=== PATIENT | female | born 1945 | race Caucasian/White ===

== ENCOUNTER 2016-12-13 11:08 | Day surgery (SDC) | payer MEDICARE, BC ==
[~2016-12-13 11:08] MED LIST: Cefuroxime 10 MG/ML SYRINGE EYERT SCH; Lidocaine 1% PF 2 ML SDV INJECT SCH; Pilocarpine 4% Ophth Soln 15 ML Bot EYERT SCH
[2016-12-13] MEDS: Polymyxin B/Trimethoprim 10 ML Bottle EYERT SCH ×3 (12:25→14:09)
[2016-12-13] MEDS: Brimonidine 0.2% Ophth Soln 5 ML Bottle EYERT SCH ×3 (12:30→14:09)
[2016-12-13] MEDS: Phenylephrine 2.5% Ophth Soln 2 ML Bot EYERT SCH ×5 (12:35→13:50)
--- NOTE | 2016-12-13 12:40 | PCM.PREANE ---
Preanesthetic Assessment - Anesthesia/Transfusion/Family Hx Anesthesia History: Prior Anesthesia Without Reaction Family History of Anesthesia Reaction: No Transfusion History: Prior Transfusion Without Reaction - Review of Systems General: No Symptoms Pulmonary: No Symptoms Cardiovascular: No Symptoms Gastrointestinal: No symptoms Neurological: Confusion (age of 14) Other: Reports: None - Physical Assessment NPO Status Date: 12/13/16 NPO Status Time: 06:00 Pulse: 97 O2 Sat by Pulse Oximetry: 84 Respiratory Rate: 16 Blood Pressure: 148/63 Temperature: 36.8 C Vital Signs: Last Vital Signs Temp 36.8 C 12/13/16 12:15 Pulse 97 12/13/16 12:15 Resp 16 12/13/16 12:15 BP 148/63 H 12/13/16 12:15 Pulse Ox 84 L 12/13/16 12:15 Height: 1.52 m Weight: 43.091 kg ASA Class: 4 Mental Status: Alert & Oriented x3 Dentition: Reports: Dentures Thyro-Mental Finger Breadths: 3 Mouth Opening Finger Breadths: 3 ROM/Head Extension: Limited/Partial Lungs: Clear to auscultation, Normal respiratory effort Cardiovascular: Regular Rate, Regular Rhythm, No Murmurs - Allergies Allergies/Adverse Reactions: Allergies Allergy/AdvReac Type Severity Reaction Status Date / Time IRINEO Inhibitors Allergy Cannot Verified 12/12/16 15:36 Remember Penicillins Allergy Cannot Verified 12/12/16 15:36 Remember - Blood Blood Available: No Product(s) Available: None - Acknowledgements Anesthesia Type Planned: MAC Pt an Appropriate Candidate for the Planned Anesthesia: Yes Alternatives and Risks of Anesthesia Discussed w Pt/Guardian: Yes Pt/Guardian Understands and Agrees with Anesthesia Plan: Yes PreAnesthesia Questionnaire - SUBSTANCE USE Smoking Status *Q: Current Every Day Smoker Tobacco Use Within Last Twelve Months: Cigarettes Other Tobacco Use Within Last Twelve Months: yes Days Per Week of Alcohol Use: 0 Number of Drinks Per Day: 0 Total Drinks Per Week: 0 Recreational Drug Use History: No - HOME MEDS Home Medications: Home Meds Citalopram [Celexa] 20 mg PO ASDIRECTED 12/12/16 [History] Estradiol [Yuvafem] 10 mcg VAG ASDIRECTED 12/12/16 [History] LORazepam [Ativan] 0.5 mg PO ASDIRECTED 12/12/16 [History] Pregabalin [Lyrica] 75 mg PO ASDIRECTED 12/12/16 [History] Triamterene/Hydrochlorothiazid [Triamterene-HCTZ 75-50 MG] 1 tab PO ASDIRECTED 12/12/16 [History] oxyCODONE HCl [Oxycodone HCl] 10 mg PO ASDIRECTED 12/12/16 [History] - CURRENT (IN HOUSE) MEDS Current Meds: Current Medications Brimonidine Tartrate (Alphagan 0.2% Ophth Soln) 0 ml EYERT ASDIRECTED AMANDA Stop: 12/13/16 18:00 Last Admin: 12/13/16 12:30 Dose: 1 drop Cefuroxime Sodium (Zinacef) 0 mg EYERT ASDIRECTED AMANDA Stop: 12/13/16 18:00 Lidocaine HCl (Xylocaine-Mpf 1%) 1 ml INJECT ASDIRECTED AMANDA Stop: 12/13/16 18:00 Phenylephrine HCl (Hieu-Synephrine 2.5% Ophth Soln) 0 ml EYERT ASDIRECTED AMANDA Stop: 12/13/16 18:00 Pilocarpine HCl (Pilocar 4% Ophth Soln) 0 ml EYERT ASDIRECTED AMANDA Stop: 12/13/16 18:00 Polymyxin/Trimethoprim Sulfate (Polytrim Ophth Soln) 0 ml EYERT ASDIRECTED AMANDA Stop: 12/13/16 18:00 Last Admin: 12/13/16 12:25 Dose: 1 drop Tetracaine (Pontocaine 0.5% Ophth Drops) 0 ml EYERT ASDIRECTED AMANDA Stop: 12/13/16 18:00 Tropicamide (Mydriacyl 1% Ophth Soln) 0 ml EYERT ASDIRECTED AMANDA Stop: 12/13/16 18:00
[2016-12-13] MEDS: Tetracaine 0.5% 2 ML Bottle EYERT SCH ×2 (13:41→13:57)
--- NOTE | 2016-12-13 14:11 | PCM48HPAN ---
Post Anesthesia Note - EVALUATION WITHIN 48HRS OF ANESTHETIC Vital Signs in Normal Range: Yes Patient Participated in Evaluation: Yes Respiratory Function Stable: Yes Airway Patent: Yes Cardiovascular Function Stable: Yes Hydration Status Stable: Yes Pain Control Satisfactory: Yes Nausea and Vomiting Control Satisfactory: Yes Mental Status Recovered: Yes
[2016-12-13 14:25] VITALS: BP 106/59
== END 2016-12-13 14:19 | disposition home or self-care (01) ==
LOC: JD.SDS 11:08 → MERGE 14:30
PROVIDERS: ATTEND Ophthalmology
DX: H25.813 Combined forms of age-related cataract, bilateral (principal); H02.831 Dermatochalasis of right upper eyelid; H02.834 Dermatochalasis of left upper eyelid; H16.223 Keratoconjunctivitis sicca, not specified as Sjogren's, bilateral; H16.103 Unspecified superficial keratitis, bilateral; E78.00 Pure hypercholesterolemia, unspecified; Z88.0 Allergy status to penicillin; Z88.8 Allergy status to other drugs, medicaments and biological substances; Z79.899 Other long term (current) drug therapy; Z90.710 Acquired absence of both cervix and uterus; Z98.890 Other specified postprocedural states
CPT/HCPCS: 66984; A9270; J0697; V2632

== ENCOUNTER 2017-01-19 07:20 | Day surgery (SDC) | payer MEDICARE, BC ==
[~2017-01-19 07:20] MED LIST changes: +Cefuroxime 10 MG/ML SYRINGE EYELF SCH; -Cefuroxime 10 MG/ML SYRINGE EYERT SCH; +Pilocarpine 4% Ophth Soln 15 ML Bot EYELF SCH; -Pilocarpine 4% Ophth Soln 15 ML Bot EYERT SCH
[2017-01-19] MEDS: Polymyxin B/Trimethoprim 10 ML Bottle EYELF SCH ×3 (07:35→09:14)
[2017-01-19] MEDS: Brimonidine 0.2% Ophth Soln 5 ML Bottle EYELF SCH ×3 (07:40→09:14)
[2017-01-19] MEDS: Phenylephrine 2.5% Ophth Soln 2 ML Bot EYELF SCH ×5 (07:43→09:00)
--- NOTE | 2017-01-19 07:51 | PCM.PREANE ---
Preanesthetic Assessment - Anesthesia/Transfusion/Family Hx Anesthesia History: Prior Anesthesia Without Reaction Family History of Anesthesia Reaction: No Transfusion History: Prior Transfusion Without Reaction - Review of Systems General: No Symptoms Pulmonary: Shortness of Breath (occas SOB with exertion) Cardiovascular: No Symptoms Gastrointestinal: No symptoms Neurological: No Symptoms Other: Reports: None - Physical Assessment NPO Status Date: 01/19/17 NPO Status Time: 01:00 Pulse: 87 O2 Sat by Pulse Oximetry: 93 Respiratory Rate: 20 Blood Pressure: 139/59 Temperature: 98.5 C Height: 1.52 m Weight: 43.091 kg ASA Class: 2 Mental Status: Alert & Oriented x3 Airway Class: Mallampati = 2 Dentition: Reports: Dentures Thyro-Mental Finger Breadths: 3 Mouth Opening Finger Breadths: 3 ROM/Head Extension: Full Lungs: Clear to auscultation, Decreased breath sounds (decreased BLL) Cardiovascular: Regular Rate, Regular Rhythm - Allergies Allergies/Adverse Reactions: Allergies Allergy/AdvReac Type Severity Reaction Status Date / Time IRNIEO Inhibitors Allergy Cannot Verified 01/18/17 16:49 Remember Penicillins Allergy Cannot Verified 01/18/17 16:49 Remember - Acknowledgements Anesthesia Type Planned: MAC Pt an Appropriate Candidate for the Planned Anesthesia: Yes Alternatives and Risks of Anesthesia Discussed w Pt/Guardian: Yes Pt/Guardian Understands and Agrees with Anesthesia Plan: Yes PreAnesthesia Questionnaire HEENT History: Reports: None, Impaired Vision Cardiovascular History: Reports: High Cholesterol Respiratory History: Reports: SOB (SOB with exertion) Gastrointestinal History: Reports: None Genitourinary History: Reports: None NURSING PROGRAM COORDINATOR History: Reports: None Musculoskeletal History: Reports: Arthritis Neurological History: Reports: None Psychiatric History: Reports: None Endocrine/Metabolic History: Reports: None Hematologic History: Reports: None Immunologic History: Reports: None Oncologic (Cancer) History: Reports: None Dermatologic History: Reports: None - Infectious Disease History Infectious Disease History: Reports: None - Past Surgical History Head Surgeries/Procedures: Reports: None HEENT Surgical History: Reports: Cataract Surgery Cardiovascular Surgical History: Reports: None Respiratory Surgical History: Reports: None GI Surgical History: Reports: None Female Surgical History: Reports: None, Hysterectomy Male Surgical History: Reports: None Endocrine Surgical History: Reports: None Neurological Surgical History: Reports: Lumbar Spine Musculoskeletal Surgical History: Reports: None Oncologic Surgical History: Reports: None Dermatological Surgical History: Reports: None - Past Imaging History Past Imaging History: Reports: None - SUBSTANCE USE Smoking Status *Q: Current Every Day Smoker Tobacco Use Within Last Twelve Months: Cigarettes Other Tobacco Use Within Last Twelve Months: yes Days Per Week of Alcohol Use: 0 Number of Drinks Per Day: 0 Total Drinks Per Week: 0 Recreational Drug Use History: No - HOME MEDS Home Medications: Home Meds Citalopram [Celexa] 20 mg PO ASDIRECTED 12/12/16 [History] Estradiol [Yuvafem] 10 mcg VAG ASDIRECTED 12/12/16 [History] LORazepam [Ativan] 0.5 mg PO ASDIRECTED 12/12/16 [History] Pregabalin [Lyrica] 75 mg PO ASDIRECTED 12/12/16 [History] Triamterene/Hydrochlorothiazid [Triamterene-HCTZ 75-50 MG] 1 tab PO ASDIRECTED 12/12/16 [History] oxyCODONE HCl [Oxycodone HCl] 10 mg PO ASDIRECTED 12/12/16 [History] - CURRENT (IN HOUSE) MEDS Current Meds: Current Medications Brimonidine Tartrate (Alphagan 0.2% Ophth Soln) 0 ml EYELF ASDIRECTED AMANDA Stop: 01/19/17 18:00 Last Admin: 01/19/17 07:40 Dose: 1 drop Cefuroxime Sodium (Zinacef) 0 mg EYELF ASDIRECTED AMANDA Stop: 01/19/17 18:00 Lidocaine HCl (Xylocaine-Mpf 1%) 10 ml INJECT ASDIRECTED AMANDA Stop: 01/19/17 18:00 Phenylephrine HCl (Hieu-Synephrine 2.5% Ophth Soln) 0 ml EYELF ASDIRECTED AMANDA Stop: 01/19/17 18:00 Last Admin: 01/19/17 07:43 Dose: 1 drop Pilocarpine HCl (Pilocar 4% Ophth Soln) 0 ml EYELF ASDIRECTED AMANDA Stop: 01/19/17 18:00 Polymyxin/Trimethoprim Sulfate (Polytrim Ophth Soln) 0 ml EYELF ASDIRECTED AMANDA Stop: 01/19/17 18:00 Last Admin: 01/19/17 07:35 Dose: 1 drop Tetracaine HCl (Tetracaine 0.5% Steri-Unit Kathi) 0 ml EYELF ASDIRECTED AMANDA Stop: 01/19/17 18:00 Tropicamide (Mydriacyl 1% Ophth Soln) 0 ml EYELF ASDIRECTED AMANDA Stop: 01/19/17 18:00
[2017-01-19] MEDS: Tetracaine HCl/PF 0.5% 4 ML Bottle EYELF SCH ×2 (08:35→09:05)
[2017-01-19 09:28] VITALS: BP 119/61
== END 2017-01-19 09:25 | disposition home or self-care (01) ==
LOC: JD.SDS 07:20
PROVIDERS: ATTEND Ophthalmology
PROC: 08RK3JZ Replacement of Left Lens with Synthetic Substitute, Percutaneous Approach (ICD-10-PCS; principal; 2017-01-19)
DX: H25.812 Combined forms of age-related cataract, left eye (principal); H02.831 Dermatochalasis of right upper eyelid; H02.834 Dermatochalasis of left upper eyelid; H16.223 Keratoconjunctivitis sicca, not specified as Sjogren's, bilateral; H16.103 Unspecified superficial keratitis, bilateral; E78.00 Pure hypercholesterolemia, unspecified; M19.90 Unspecified osteoarthritis, unspecified site; F17.210 Nicotine dependence, cigarettes, uncomplicated; Z88.0 Allergy status to penicillin; Z88.8 Allergy status to other drugs, medicaments and biological substances; Z79.899 Other long term (current) drug therapy; Z98.41 Cataract extraction status, right eye; Z96.1 Presence of intraocular lens; Z90.710 Acquired absence of both cervix and uterus; Z98.890 Other specified postprocedural states
CPT/HCPCS: 66984; A9270; J0697; V2632